=== PATIENT | male | born 1965 | race African-American/Black ===

== ENCOUNTER 2018-12-01 12:34 | Emergency (ER) | payer OTHER ==
[2018-12-01 12:44] VITALS: BP 144/77; PULSE 72; TEMP 98.4; BMI 36.7
--- NOTE | 2018-12-01 13:11 | PDOC ---
History of Present Illness - General Chief Complaint: Back Pain Stated Complaint: LOWER BACK PAIN Time Seen by Provider: 12/01/18 12:56 - History of Present Illness Initial Comments: 12/01/18 13:10 53-year-old male with a past medical history significant for hypertension. Presents for evaluation of atraumatic onset of mid back pain times one week worsen with exertion and deep breaths. Sometimes this pain makes him short of breath. Past History - Past Medical History Allergies/Adverse Reactions: Allergies Allergy/AdvReac Type Severity Reaction Status Date / Time No Known Allergies Allergy Verified 12/01/18 12:44 Home Medications: Ambulatory Orders Aspirin [ASA -] 81 mg PO DAILY 10/22/16 Cyclobenzaprine HCl [Flexeril 10 mg] 10 mg PO HS PRN #10 tablet 12/01/18 COPD: No HTN: Yes - Immunization History Immunization Up to Date: Yes - Suicide/Smoking/Psychosocial Hx Smoking History: Never smoked Hx Alcohol Use: Yes (SOCIAL) Drug/Substance Use Hx: No Substance Use Type: None Review of Systems - Review of Systems Musculoskeletal: Yes: Back Pain *Physical Exam - Vital Signs Last Vital Signs Temp Pulse Resp BP Pulse Ox 98.4 F 72 18 144/77 97 12/01/18 12:41 12/01/18 12:41 12/01/18 12:41 12/01/18 12:41 12/01/18 12:41 - Physical Exam Comments: 12/01/18 13:10 HEAD: NC/AT EYES: Conjuntiva clear Ears: Canals and TM's normal NOSE: No d/c THROAT: Moist mucous membrances, oral pharanx clear, uvula midline NECK: Supple without adenopathy CARDIAC: S1 S2 LUNGS: CTA Full and Equal breath sounds ABDOMEN: Soft NT ND MS: Full ROM in all joints without edema, there is no tenderness in the area of complaint about the mid back. NEUROLOGIC: No gross sensory or motor deficits, NVID SKIN: Normal color and temperature no lesions or rashes Moderate Sedation - Procedure Monitoring Vital Signs: Procedure Monitoring Vital Signs Temperature 98.4 F 12/01/18 12:41 Pulse Rate 72 12/01/18 12:41 Respiratory Rate 18 12/01/18 12:41 Blood Pressure 144/77 12/01/18 12:41 O2 Sat by Pulse Oximetry (%) 97 12/01/18 12:41 ED Treatment Course - LABORATORY CBC & Chemistry Diagram: 12/01/18 13:12 12/01/18 13:12 Medical Decision Making - Medical Decision Making 12/01/18 13:11 Concerning history, pain cannot be reproduced with palpation. Pain cannot be reproduced with movement. Pain is on exertion will get CTA of chest 12/01/18 16:10 Musculoskeletal back pain, will treat with Flexeril and ortho f/u *DC/Admit/Observation/Transfer Diagnosis at time of Disposition: Muscle pain - Discharge Dispostion Disposition: HOME Condition at time of disposition: Stable Decision to Admit order: No - Referrals Referrals: Juan Beverly MD [Staff Physician] - - Patient Instructions Printed Discharge Instructions: DI for Thoracic Back Pain Additional Instructions: Please take the muscle relaxer as directed and return to the emergency room should symptoms worsen or go unresolved. Follow-up with orthopedic surgery 2-3 days for further evaluation and treatment of the back pain. - Post Discharge Activity
--- NOTE | 2018-12-01 13:20 | PDOC ---
History of Present Illness - General Chief Complaint: Back Pain Stated Complaint: LOWER BACK PAIN Time Seen by Provider: 12/01/18 12:56 - History of Present Illness Initial Comments: 12/02/18 10:01 DID NOT SEE THIS PATIENT Past History - Past Medical History Allergies/Adverse Reactions: Allergies Allergy/AdvReac Type Severity Reaction Status Date / Time No Known Allergies Allergy Verified 12/01/18 12:44 Home Medications: Ambulatory Orders Aspirin [ASA -] 81 mg PO DAILY 10/22/16 Cyclobenzaprine HCl [Flexeril 10 mg] 10 mg PO HS PRN #10 tablet 12/01/18 COPD: No HTN: Yes - Immunization History Immunization Up to Date: Yes - Suicide/Smoking/Psychosocial Hx Smoking History: Never smoked Hx Alcohol Use: Yes (SOCIAL) Drug/Substance Use Hx: No Substance Use Type: None *Physical Exam - Vital Signs Last Vital Signs Temp Pulse Resp BP Pulse Ox 98.4 F 72 18 144/77 97 12/01/18 12:41 12/01/18 12:41 12/01/18 12:41 12/01/18 12:41 12/01/18 12:41 Moderate Sedation - Procedure Monitoring Vital Signs: Procedure Monitoring Vital Signs Temperature 98.4 F 12/01/18 12:41 Pulse Rate 72 12/01/18 12:41 Respiratory Rate 18 12/01/18 12:41 Blood Pressure 144/77 12/01/18 12:41 O2 Sat by Pulse Oximetry (%) 97 12/01/18 12:41 ED Treatment Course - LABORATORY CBC & Chemistry Diagram: 12/01/18 13:12 12/01/18 13:12 *DC/Admit/Observation/Transfer Diagnosis at time of Disposition: Muscle pain - Discharge Dispostion Disposition: HOME Condition at time of disposition: Stable - Prescriptions Prescriptions: Cyclobenzaprine HCl [Flexeril 10 mg] 10 mg PO HS PRN #10 tablet PRN Reason: Muscle Spasms - Referrals Referrals: Juan Beverly MD [Staff Physician] - - Patient Instructions Printed Discharge Instructions: DI for Thoracic Back Pain Additional Instructions: Please take the muscle relaxer as directed and return to the emergency room should symptoms worsen or go unresolved. Follow-up with orthopedic surgery 2-3 days for further evaluation and treatment of the back pain. - Post Discharge Activity
[2018-12-01 13:33] LABS: BASO % 1.3 % (0-2.0); EOS % 1.5 % (0-4.5); HEMATOCRIT 44.6 % (35.4-49); HEMOGLOBIN 15.3 GM/dL (11.7-16.9); LYMPH % 33.9 % (8-40); MCH 31.3 pg (25.7-33.7); MCHC 34.4 g/dl (32.0-35.9); MEAN PLT VOLUME 8.2 fl (7.5-11.1); MONO % 9.4 % (3.8-10.2); NEUT % 53.9 % (42.8-82.8); PLATELET COUNT 382 K/MM3 (134-434); RDW 13.6 % (11.9-15.9); WHITE BLOOD COUNT 7.3 K/mm3 (4.0-10.0)
[2018-12-01 13:42] LABS: INR 0.97 (0.83-1.09); PROTHROMBIN TIME (PATIENT) 11.5 SEC (9.7-13.0)
[2018-12-01 13:53] LABS: ALBUMIN 4.1 g/dl (3.4-5.0); ALK PHOS 94 U/L (45-117); ANION GAP 4 MMOL/L (8-16); BILIRUBIN,TOTAL 0.5 mg/dL (0.2-1); BLOOD UREA NITROGEN 12 mg/dL (7-18); CALCIUM 8.7 mg/dL (8.5-10.1); CHLORIDE 104 mmol/L (98-107); CO2 32 mmol/L (21-32); CREATININE 1.1 mg/dL (0.55-1.3); GLUCOSE,RANDOM 112 mg/dL (74-106); SGOT/AST 40 U/L (15-37); SGPT/ALT 46 U/L (13-61); SODIUM 139 mmol/L (136-145); TOT PROT 8.1 g/dl (6.4-8.2)
== END 2018-12-01 16:28 | disposition home or self-care (01) ==
LOC: JERFT 12:34
DX: M79.18 Myalgia, other site (principal); M54.89 Other dorsalgia; I10 Essential (primary) hypertension
CPT/HCPCS: 36415; 71275-TC; 74175-TC; 80053; 85025; 85610; 99281-25